=== PATIENT | female | born 1955 | race Caucasian/White ===

== ENCOUNTER → 2017-09-24 | Outpatient (CLI) | payer MEDICARE, OTHER ==
[~2017-09-24] MED LIST: FLUSAL2505 INH; PROZAC20 MG PO; RANI150 PO; Synthroid112 MCG PO; ZAFI20 PO
== END ==
LOC: LAB SHORT 15:41 → LAB 15:41
PROVIDERS: Nurse Practitioner Family
DX: Z00.00 Encounter for general adult medical examination without abnormal findings (principal); Z01.419 Encounter for gynecological examination (general) (routine) without abnormal findings
CPT/HCPCS: G0145

== ENCOUNTER 2018-09-13 08:56 | Day surgery (SDC) | payer MEDICARE, OTHER ==
[~2018-09-13] VITALS: Ht 172.7 cm; Wt 114.8 kg
== END 2018-09-13 11:25 | disposition home or self-care (01) ==
LOC: ORSCSDS 08:56
PROVIDERS: Surgery
PROC: 0DJ08ZZ Inspection of Upper Intestinal Tract, Via Natural or Artificial Opening Endoscopic (ICD-10-PCS; principal; 2018-09-13 10:15)
DX: R13.10 Dysphagia, unspecified (principal); K44.9 Diaphragmatic hernia without obstruction or gangrene; J45.909 Unspecified asthma, uncomplicated; E03.9 Hypothyroidism, unspecified; I25.2 Old myocardial infarction; F41.8 Other specified anxiety disorders; E66.01 Morbid (severe) obesity due to excess calories; Z68.38 Body mass index [BMI] 38.0-38.9, adult; Z79.899 Other long term (current) drug therapy
CPT/HCPCS: J2704; J7120

== ENCOUNTER → 2018-09-15 | Outpatient (CLI) | payer MEDICARE, OTHER ==
[2018-09-19 15:06] LABS: HPV 16 Negative (Negative); HPV 18 Negative (Negative); HPV OTHER HR TYPES Negative (Negative)
== END | disposition home or self-care (01) ==
LOC: LAB SHORT 17:16 → LAB 17:16
PROVIDERS: Nurse Practitioner Women's Health
DX: Z12.4 Encounter for screening for malignant neoplasm of cervix (principal)
CPT/HCPCS: 87624; G0123

== ENCOUNTER 2018-12-05 08:28 | Day surgery (SDC) | payer MEDICARE, OTHER ==
[~2018-12-05] VITALS: Ht 176 cm; Wt 119.9 kg
[~2018-12-05 08:28] MED LIST changes: +ESTRADIOL42.5 GM VAG; +OLAN5 PO; +OMEPRAZOLE20 MG PO; -Synthroid112 MCG PO; +Synthroid175 MCG PO
--- NOTE | 2018-12-05 09:19 | NUR ---
12/05/18 0919 Dada Cummins History, Chart, Medications and Allergies reviewed before start of procedure.MONITOR INTACT WITH CONTINUOUS PULSE OXIMETRY AND INTERMITTENT BP.3-LEAD EKG REVIEWED WITH PHYSICIAN PRIOR TO START OF PROCEDURE.O2 VIA N/C INTACT THROUGHOUT SEDATION/PROCEDURE. Patient confirms NPO status and agrees with scheduled surgery.PATIENT DETERMINED TO BE ASA APPROPRIATE FOR PROPOFOL SEDATION PRIOR TO START OF PROCEDURE BY DR. TAYLOR.
[2019-03-17] MEDS ORDERED: METF500 PO (14:23)
[2019-03-17] MEDS ORDERED: FISH OIL + D31 EACH PO (14:23)
[2019-03-17] MEDS ORDERED: ALBU3IS INH (14:27)
== END 2018-12-05 10:33 | disposition home or self-care (01) ==
LOC: ORSCMMR 08:28 → ORD 09:30 → ORSCMMR 10:33
PROVIDERS: Internal Medicine Gastroenterology
PROC: 0DB48ZX Excision of Esophagogastric Junction, Via Natural or Artificial Opening Endoscopic, Diagnostic (ICD-10-PCS; principal; 2018-12-05 09:30)
PROC: 0DB58ZX Excision of Esophagus, Via Natural or Artificial Opening Endoscopic, Diagnostic (ICD-10-PCS; principal; 2018-12-05 09:30)
PROC: 0DB68ZX Excision of Stomach, Via Natural or Artificial Opening Endoscopic, Diagnostic (ICD-10-PCS; principal; 2018-12-05 09:30)
PROC: 0DB88ZX Excision of Small Intestine, Via Natural or Artificial Opening Endoscopic, Diagnostic (ICD-10-PCS; principal; 2018-12-05 09:30)
PROC: 0D758ZZ Dilation of Esophagus, Via Natural or Artificial Opening Endoscopic (ICD-10-PCS; principal; 2018-12-05 09:30)
DX: R13.14 Dysphagia, pharyngoesophageal phase (principal); K21.9 Gastro-esophageal reflux disease without esophagitis; E03.9 Hypothyroidism, unspecified; Z79.899 Other long term (current) drug therapy
CPT/HCPCS: 88305; 88342; C1726; J2704; J7120

== ENCOUNTER → 2019-01-26 | Outpatient (CLI) | payer MEDICARE, OTHER ==
[~2019-01-26] MED LIST changes: +ALBU3IS INH; +FISH OIL + D31 EACH PO; +METF500 PO
[2019-01-27 16:40] LABS: Adenovirus F 40/41 Not Detected (NOT DETECT); Astrovirus Not Detected (NOT DETECT); Campylobacter Sp Not Detected (NOT DETECT); Cryptosporidium Not Detected (NOT DETECT); Cyclospora Cayetanensis Not Detected (NOT DETECT); E. Coli O157 Not Detected (NOT DETECT); Entamoeba Histolytica Not Detected (NOT DETECT); Enteroaggregative E. coli-EAEC Not Detected (NOT DETECT); Enteropathogenic E. coli-EPEC Not Detected (NOT DETECT); Enterotoxigenic E. coli-ETEC Not Detected (NOT DETECT); Giardia Lamblia Not Detected (NOT DETECT); Norovirus GI/GII Not Detected (NOT DETECT); Plesiomonas Shigelloides Not Detected (NOT DETECT); Rotavirus A Not Detected (NOT DETECT); Salmonella Sp Not Detected (NOT DETECT); Sapovirus Not Detected (NOT DETECT); Shiga Toxin-prod E. coli-STEC Not Detected (NOT DETECT); Shigella/Enteroin E. coli-EIEC Not Detected (NOT DETECT); Vibrio Cholerae Not Detected (NOT DETECT); Vibrio Sp Not Detected (NOT DETECT); Yersinia Enterocolitica Not Detected (NOT DETECT)
== END | disposition home or self-care (01) ==
LOC: LAB SHORT 13:46 → LAB 13:46 → EDSTATUS 01-27 14:25 → LAB FUT 01-27 14:25
PROVIDERS: Nurse Practitioner Family
DX: R19.7 Diarrhea, unspecified (principal)
CPT/HCPCS: 0097U

== ENCOUNTER → 2019-02-10 | Outpatient (CLI) | payer MEDICARE, OTHER ==
[2019-02-10 10:30] LABS: BASOPHILS ABSOLUTE AUTO 0.04 K/mm3 (0.00-0.23); BASOPHILS PERCENT AUTO 1 % (0-2); EOSINOPHILS ABSOLUTE AUTO 0.17 K/mm3 (0.00-0.68); EOSINOPHILS PERCENT AUTO 4 % (0-6); Hematocrit 40.5 % (33.0-51.0); Hemoglobin 13.4 g/dL (11.5-16.0); IMMATURE GRAN ABSOLUTE AUTO 0.01 K/mm3 (0.00-0.10); IMMATURE GRAN PERCENT AUTO 0 % (0-1); LYMPHOCYTES ABSOLUTE AUTO 1.21 K/mm3 (0.84-5.20); LYMPHOCYTES PERCENT AUTO 27 % (21-46); MONOCYTES ABSOLUTE AUTO 0.43 K/mm3 (0.16-1.47); MONOCYTES PERCENT AUTO 10 % (4-13); Mean Corpuscular HGB 28.8 pg (26.0-34.0); Mean Corpuscular HGB Conc 33.1 g/dL (31.5-36.5); Mean Corpuscular Volume 87 fL (80-100); Mean Platelet Volume 10.7 fL (9.1-12.4); NEUTROPHILS ABSOLUTE AUTO 2.68 K/mm3 (1.96-9.15); NEUTROPHILS PERCENT AUTO 59 % (41-73); Platelet Count 172 K/mm3 (150-400); RDW Coefficient Variation 14.6 % (11.7-14.2); RDW Standard Deviation 46.2 fL (35.1-46.3); Red Blood Cell Count 4.66 M/mm3 (3.80-5.20); White Blood Cell Count 4.54 K/mm3 (4.00-11.30)
[2019-02-10 10:42] LABS: Albumin, Blood 3.7 g/dL (3.4-5.0); Bilirubin, Total 0.4 mg/dL (0.1-1.0); Bun/Creatinine Ratio 13.5 (12.0-20.0); Calcium, Blood 9.1 mg/dL (8.5-10.1); Creatinine, Blood 1.11 mg/dL (0.40-1.00); Globulin, Blood 3.7 g/dL (2.2-4.0); Potassium, Blood 4.3 mmol/L (3.5-5.5); Total Protein, Blood 7.4 g/dL (6.4-8.2)
== END | disposition home or self-care (01) ==
LOC: LAB EV 10:25 → LAB SHORT 10:25
PROVIDERS: Physician Assistant
DX: R55 Syncope and collapse (principal); E03.9 Hypothyroidism, unspecified
CPT/HCPCS: 80053; 84443; 85025

== ENCOUNTER 2019-03-24 07:26 | Day surgery (SDC) | payer MEDICARE, OTHER ==
[~2019-03-24] VITALS: Ht 172.7 cm; Wt 114.7 kg
--- NOTE | 2019-03-24 08:15 | NUR ---
03/24/19 0815 Faith Reveles 1 TRY UPPER ARM LEFT SIDE NO FLASH
== END 2019-03-24 09:11 | disposition home or self-care (01) ==
LOC: ORSCSDS 07:26
PROVIDERS: Surgery
PROC: 0DBM8ZX Excision of Descending Colon, Via Natural or Artificial Opening Endoscopic, Diagnostic (ICD-10-PCS; principal; 2019-03-24 08:30)
PROC: 0DBK8ZX Excision of Ascending Colon, Via Natural or Artificial Opening Endoscopic, Diagnostic (ICD-10-PCS; principal; 2019-03-24 08:30)
DX: R19.4 Change in bowel habit (principal); R10.84 Generalized abdominal pain; D12.2 Benign neoplasm of ascending colon; D12.4 Benign neoplasm of descending colon; E11.9 Type 2 diabetes mellitus without complications; E03.9 Hypothyroidism, unspecified; J45.909 Unspecified asthma, uncomplicated; K21.9 Gastro-esophageal reflux disease without esophagitis; Z79.899 Other long term (current) drug therapy
CPT/HCPCS: 82947; 88305; J2001; J2405; J2704; J7120

== ENCOUNTER 2019-08-08 19:43 | Emergency (ER) | payer MEDICARE, OTHER ==
[~2019-08-08] VITALS: Ht 172.7 cm; Wt 151.9 kg
[2019-08-08 20:17] LABS: BASOPHILS ABSOLUTE AUTO 0.02 K/mm3 (0.00-0.23); BASOPHILS PERCENT AUTO 0 % (0-2); EOSINOPHILS PERCENT AUTO 0 % (0-6); Hematocrit 41.7 % (33.0-51.0); Hemoglobin 13.7 g/dL (11.5-16.0); IMMATURE GRAN ABSOLUTE AUTO 0.04 K/mm3 (0.00-0.10); IMMATURE GRAN PERCENT AUTO 0 % (0-1); LYMPHOCYTES ABSOLUTE AUTO 1.37 K/mm3 (0.84-5.20); LYMPHOCYTES PERCENT AUTO 13 % (21-46); MONOCYTES ABSOLUTE AUTO 0.58 K/mm3 (0.16-1.47); MONOCYTES PERCENT AUTO 6 % (4-13); Mean Corpuscular HGB 28.4 pg (26.0-34.0); Mean Corpuscular HGB Conc 32.9 g/dL (31.5-36.5); Mean Corpuscular Volume 87 fL (80-100); NEUTROPHILS ABSOLUTE AUTO 8.46 K/mm3 (1.96-9.15); NEUTROPHILS PERCENT AUTO 81 % (41-73); Platelet Count 210 K/mm3 (150-400); RDW Coefficient Variation 14.7 % (11.7-14.2); RDW Standard Deviation 47.1 fL (35.1-46.3); Red Blood Cell Count 4.82 M/mm3 (3.80-5.20); White Blood Cell Count 10.47 K/mm3 (4.00-11.30)
[2019-08-08 20:34] LABS: International Normalized Ratio 0.96; Prothrombin Time Results 10.3 Sec (9.7-11.5)
[2019-08-08 20:35] LABS: Alanine Aminotransfer (ALT/SGP 40 U/L (12-78); Albumin, Blood 3.3 g/dL (3.4-5.0); Albumin/Globulin Ratio 0.8 (0.8-1.8); Alk Phos 93 U/L (50-136); Anion Gap 8 mmol/L (6-16); Aspartate Aminotrans (AST/SGOT 21 U/L (12-37); Bilirubin, Total 0.2 mg/dL (0.1-1.0); Blood Urea Nitrogen 26 mg/dL (8-24); CO2, Blood 22 mmol/L (21-32); Calcium, Blood 9.7 mg/dL (8.5-10.1); Chloride, Blood 108 mmol/L (98-108); Creatinine, Blood 0.93 mg/dL (0.40-1.00); Globulin, Blood 3.9 g/dL (2.2-4.0); Glomerular Filtration Rate >60 (60-); Glucose, Blood 188 mg/dL (70-99); Potassium, Blood 4.3 mmol/L (3.5-5.5); Sodium, Blood 138 mmol/L (136-145); Total Protein, Blood 7.2 g/dL (6.4-8.2)
[2019-08-08 20:45] LABS: Influenza A Negative (NEGATIVE); Influenza B Negative (NEGATIVE)
[2019-08-08 20:51] LABS: Source, Urine Catheter
[2019-08-08 20:54] LABS: Appearance, Urine Clear (Clear); Bilirubin, Urine Neg (Neg); Blood, Urine Neg (Neg); Color, Urine Yellow (P-Yellow); Glucose Qualitative, Urine Neg (Neg); Ketones, Urine 1+ (Neg); Leukocyte Esterase, Urine Neg (Neg); Nitrite, Urine Neg (Neg); Protein, Urine 1+ (Neg); Urobilinogen, Urine NORM (Normal)
== END 2019-08-09 00:31 | disposition home or self-care (01) ==
LOC: ER 19:43
PROVIDERS: Physician Assistant
DX: J45.901 Unspecified asthma with (acute) exacerbation (principal); J06.9 Acute upper respiratory infection, unspecified; F17.200 Nicotine dependence, unspecified, uncomplicated; Z79.899 Other long term (current) drug therapy
CPT/HCPCS: 36415; 80053; 83605; 85025; 85610; 85730; 87804; 93005; 93010; 99285-25

== ENCOUNTER → 2021-11-17 | Outpatient (CLI) | payer MEDICARE, OTHER | END | disposition home or self-care (01) | LOC: LAB 09:45 → LAB SHORT 09:45 → EDSTATUS 15:25 | DX: E11.65 Type 2 diabetes mellitus with hyperglycemia (principal) | CPT/HCPCS: 82043 ==

== ENCOUNTER → 2022-03-31 | Outpatient (CLI) | payer MEDICARE, OTHER ==
[2022-04-01 10:37] LABS: Candida species (DNA Probe) Negative (NEGATIVE); G. vaginalis (DNA Probe) Positive (NEGATIVE); T. vaginalis (DNA Probe) Negative (NEGATIVE)
== END | disposition home or self-care (01) ==
LOC: LAB SHORT 11:08 → LAB 11:08
PROVIDERS: Obstetrics & Gynecology
DX: N89.8 Other specified noninflammatory disorders of vagina (principal)
CPT/HCPCS: 87480; 87510; 87660

== ENCOUNTER 2023-02-24 08:26 | Day surgery (SDC) | payer MEDICARE, OTHER | END 2023-02-24 22:38 | disposition home or self-care (01) | LOC: MOI MAM 08:26 | DX: R92.8 Other abnormal and inconclusive findings on diagnostic imaging of breast (principal) | CPT/HCPCS: 19081; A4648 ==

== ENCOUNTER → 2024-05-03 | Outpatient (CLI) | payer MEDICARE, OTHER ==
[~2024-05-03] MED LIST changes: +JARDIANCE10 MG PO; +METO25ER PO; +RISP1 PO; +SERT50 PO; +TOLT4 PO; +Vitamin D1000 UNI1 PO
== END | disposition home or self-care (01) ==
LOC: LAB SHORT 09:04 → LAB 09:04
DX: N39.0 Urinary tract infection, site not specified (principal)
CPT/HCPCS: 87077; 87086; 87186